=== PATIENT | female | born 1965 | race Caucasian/White ===

== ENCOUNTER → 2017-05-31 | Outpatient (CLI) | payer MEDICARE ==
[~2017-05-31] MED LIST: GADOBUTROL 10 MMOL/10 ML (GADAVIST) VIAL IV ONE
--- NOTE | 2017-05-31 17:48 | Diagnostic Imaging Report ---
PROCEDURE: MR imaging of the brain with and without contrast. TECHNIQUE: Multiplanar, multisequence MR imaging of the brain was performed with and without contrast. INDICATION: Multiple sclerosis. 8 mL of Gadovist is administered intravenously. COMPARISON: 02/24/2012. FINDINGS: There are mild supratentorial periventricular white matter T2 hyperintense signal abnormalities seen which appear slightly more prominent compared to the previous exam from 2012. There is a juxtacortical new lesion measuring 5 mm seen in the left parietal operculum area. There are also better seen T2 hyperintense lesions within the corpus callosum noted on the current sagittal FLAIR image. No prior sagittal FLAIR image to compare however is available. There is no enhancing lesion. There is no infratentorial acute lesion identified. Old lacunar infarct or old demyelinating lesion with encephalomalacia measuring 5 mm in the right cerebellar hemisphere however is seen. This appears to be present on the previous exam although less obvious compared to the present study. No brain edema or enhancing mass. The pituitary gland is normal in size. No hypothalamic or pineal region mass. The central vascular flow voids appear preserved. The internal auditory canals and inner ear structures appear unremarkable. IMPRESSION: There is minimal increase in the supratentorial T2 hyperintense lesions compared to 2012 exam, in the setting of known multiple sclerosis, which is suggestive of minimal progression compared to 2012. No enhancing lesion. Dictated by: Dictated on workstation # [id number]
== END ==
LOC: RAD 13:19
PROVIDERS: ATTEND Psychiatry & Neurology Neurology
DX: G35 Multiple sclerosis (principal)
CPT/HCPCS: 70553

== ENCOUNTER → 2018-11-01 | Outpatient (CLI) | payer MEDICARE ==
--- NOTE | 2018-11-01 12:40 | Diagnostic Imaging Report ---
INDICATION: Abnormal liver function tests. TECHNIQUE: Multiple grayscale sonographic images were obtained of the right upper quadrant of the abdomen. CORRELATION STUDY: None. FINDINGS: LIVER: There is increased echotexture within the visualized portions of the liver. There is overall limited echo penetration through the liver. Definitive focal lesion not visualized. Liver length 18.4 cm. Normal direction of flow in the main portal vein. GALLBLADDER: Multiple what appear to be nonmobile gallstones are present near the gallbladder neck. Borderline gallbladder wall thickening at 3 mm. COMMON BILE DUCT: Largely obscured by overlying bowel gas but appears to be nondilated at 4 mm. PANCREAS: Obscured by overlying bowel gas. RIGHT KIDNEY: Measures 8.2 x 5.1 x 5.0 cm. No hydronephrosis. AORTA/IVC: Not well visualized. OTHER: None. IMPRESSION: 1. Cholelithiasis with what appear to be multiple nonmobile stones within the gallbladder near the neck. Borderline gallbladder wall thickening. No significant bile duct dilatation. 2. Borderline liver size demonstrating hepatic steatosis. Dictated by: Dictated on workstation # [id number]
== END ==
LOC: RAD 07:32
PROVIDERS: ATTEND Registered Nurse
DX: K76.0 Fatty (change of) liver, not elsewhere classified (principal); K80.20 Calculus of gallbladder without cholecystitis without obstruction
CPT/HCPCS: 76705

== ENCOUNTER → 2021-07-08 | Outpatient (CLI) | payer MEDICARE ==
--- NOTE | 2021-07-08 13:15 | Diagnostic Imaging Report ---
INDICATION: Routine screening. COMPARISON: No prior mammograms are available for comparison. TECHNIQUE: 2D and 3D bilateral screening mammography was performed with CAD. FINDINGS: Both breasts are heterogeneously dense, limiting the sensitivity of mammography. There is a subtle cluster of microcalcifications in the inferior left breast on the MLO view. These appear to be fairly central on the CC view. Additional views are recommended. No other suspicious microcalcifications are seen. No dominant mass is detected. The axillae are unremarkable. IMPRESSION: Left breast calcifications. Additional views are recommended for further evaluation. ACR BI-RADS Category 0: Incomplete. (Needs additional imaging evaluation). Result letter will be mailed to the patient. Note: At least 10% of breast cancer is not imaged by mammography. Dictated by: Dictated on workstation # [id number]
== END ==
LOC: RAD 09:00
PROVIDERS: ATTEND Pediatrics
DX: Z12.31 Encounter for screening mammogram for malignant neoplasm of breast (principal); R92.1 Mammographic calcification found on diagnostic imaging of breast
CPT/HCPCS: 77063; 77067

== ENCOUNTER → 2021-07-21 | Outpatient (CLI) | payer MEDICARE ==
--- NOTE | 2021-07-21 14:34 | Diagnostic Imaging Report ---
INDICATION: Left breast calcifications. The patient presents for additional views. COMPARISON: Correlation is made with the screening study from 07/08/2021. TECHNIQUE: Unilateral left 2D and 3D diagnostic mammography was performed. This included magnification CC and ML views as well as conventional 90 degree lateral view. FINDINGS: There is a subtle cluster of calcifications in the inferior slightly inner left breast. No associated soft tissue mass is identified. There are additional benign calcifications elsewhere throughout the left breast. IMPRESSION: Indeterminate, likely benign cluster of microcalcifications in the lower slightly inner left breast at mid depth. A followup mammogram in 6 months is recommended to show continued stability. ACR BI-RADS Category 3: Probably benign findings. Result letter will be mailed to the patient. Note: At least 10% of breast cancer is not imaged by mammography. Dictated by: Dictated on workstation # [id number]
== END ==
LOC: RAD 14:15
PROVIDERS: ATTEND Pediatrics
DX: R92.0 Mammographic microcalcification found on diagnostic imaging of breast (principal)
CPT/HCPCS: 77065; G0279

== ENCOUNTER → 2021-10-21 | Outpatient (CLI) | payer MEDICARE ==
--- NOTE | 2021-10-21 09:34 | Diagnostic Imaging Report ---
PROCEDURE: MR imaging cervical spine without contrast. TECHNIQUE: Multiplanar, multisequence MR imaging of the cervical spine was performed without contrast. INDICATION: Multiple sclerosis. COMPARISON: 08/21/2011. FINDINGS: The cervical spinal cord itself appears intrinsically unremarkable. No visualized plaque, volume loss, or other cord pathology is found. There is straightening of the cervical curvature now showing mild reversal of lordosis at the C4-C5 level. No acute bony pathology. There are mixed fatty and edematous Modic type I-type II changes across the articular endplates at C5-C6 and as new findings. No paravertebral mass, hemorrhage, or fluid collection. The craniocervical relationship and the C1-C2 and C2-C3 levels and discs are normal. There is no stenosis. C3-C4: There is mild disc desiccation as well as a new focal midline small disc protrusion indenting the midline ventral thecal sac with mild canal stenosis. The foramina are patent. C4-C5: Progressive spondylosis with osteophyte/disc material, anterior greater than posterior, has occurred. There is now a moderate canal stenosis with moderate to severe biforaminal stenoses. C5-C6: Posterior osteophyte/disc material indents the ventral thecal sac and has progressed, now with moderate to severe canal stenosis. There is severe left and moderate to severe right neuroforaminal narrowing, increased. C6-C7: Osteophyte/disc material, anterior greater than posterior, has progressed and now results in moderate spinal canal stenosis with moderate left and mild right foraminal narrowing. The C7-T1 level and disc are stable and normal. There is no stenosis. IMPRESSION: 1. The spinal cord itself appears unremarkable and stable. 2. Progressive degenerative changes throughout the mid to lower cervical spine result in substantial degrees of increased multilevel canal and foraminal stenoses detailed level by level above. Dictated by: Dictated on workstation # [id number]
--- NOTE | 2021-10-21 09:45 | Diagnostic Imaging Report ---
PROCEDURE: MR imaging of the brain without contrast. TECHNIQUE: Multiplanar, multisequence MR imaging of the brain was performed without contrast. INDICATION: Multiple sclerosis. COMPARISON: 05/31/2017. FINDINGS: A small area of curvilinear gliosis associated with the left frontal lobe anterosuperiorly may be on a post ischemic basis. This does not have the typical morphology of a multiple sclerosis plaque. With regards to the other scattered areas of subcortical and periventricular white matter disease T2 hyperintense and most conspicuous on the FLAIR weighted pulse sequences, these show no convincing interval change and exert no mass effect. None of these lesions show diffusion restriction. There are no findings to suggest active demyelinization at this nonenhanced study. The orbital contents are unremarkable. The optic nerves and their sheaths are unremarkable. There are no findings of an infarct. There is no evidence for acute hemorrhage. No focal or generalized cerebral edema. No evidence for an elevation of the intracerebral pressures. IMPRESSION: 1. Subcortical and periventricular white matter disease supratentorially shows no significant change. There is likely a small area of curvilinear cortical gliosis in the left frontal lobe. 2. No hemorrhage, infarct, edema, or acute appearing abnormalities. Dictated by: Dictated on workstation # [id number]
== END ==
LOC: RAD 07:30
PROVIDERS: ATTEND Psychiatry & Neurology Neurology
DX: M47.812 Spondylosis without myelopathy or radiculopathy, cervical region (principal); M50.20 Other cervical disc displacement, unspecified cervical region; M48.02 Spinal stenosis, cervical region; M25.78 Osteophyte, vertebrae; G35 Multiple sclerosis
CPT/HCPCS: 70551; 72141

== ENCOUNTER 2022-01-28 05:32 | Outpatient (CLI) | payer MEDICARE ==
[~2022-01-28] VITALS: Ht 170.2 cm; Wt 79.4 kg
[2022-01-28] MEDS ORDERED: AMIT50TA3 PO (11:08)
[2022-01-28] MEDS ORDERED: DULO60CA59 PO (11:08)
[2022-01-28] MEDS ORDERED: GABA-490 PO (11:08)
[2022-01-28] MEDS ORDERED: CARB200T6 PO (11:08)
[2022-01-28] MEDS ORDERED: DEXT10CA18 PO (11:08)
[2022-01-28] MEDS ORDERED: ATOR80TA76 PO (11:08)
[2022-01-28] MEDS ORDERED: RT-ALBUINH IH (11:08)
[2022-01-28] MEDS ORDERED: ERGO80009 PO (11:08)
[2022-01-28] MEDS ORDERED: GLIM1TAB4 PO (11:08)
[2022-01-28] MEDS ORDERED: GLAT20KI3 SQ (11:08)
[2022-01-28] MEDS ORDERED: TIOT18CA2 IH (11:08)
[2022-01-28] MEDS ORDERED: BUDE10.2 IH (11:08)
== END 2022-01-28 11:10 | disposition home or self-care (01) ==
LOC: PREOP 05:32
PROVIDERS: ATTEND Surgery
DX: Z01.818 Encounter for other preprocedural examination (principal)

== ENCOUNTER → 2022-01-30 | Outpatient (CLI) | payer MEDICARE ==
[~2022-01-30] MED LIST changes: +AMIT50TA3 PO; +ATOR80TA76 PO; +BUDE10.2 IH; +CARB200T6 PO; +DEXT10CA18 PO; +DULO60CA59 PO; +ERGO80009 PO; +GABA-490 PO; -GADOBUTROL 10 MMOL/10 ML (GADAVIST) VIAL IV ONE; +GLAT20KI3 SQ; +GLIM1TAB4 PO; +RT-ALBUINH IH; +TIOT18CA2 IH
--- NOTE | 2022-01-30 12:43 | Diagnostic Imaging Report ---
INDICATION: Six-month follow-up left breast calcifications. CORRELATION is made prior mammograms from 07/21/2021 and 07/08/2021. Unilateral left 2-D and 3-D diagnostic mammography was performed with CAD. Left breast remains heterogeneously dense, limiting the sensitivity of mammography. The small cluster of microcalcifications in the central left breast mid depth appear stable. There are additional scattered benign calcifications. No mass is detected. Left axilla is unremarkable. IMPRESSION: BI-RADS Category 3 Stable left breast calcifications. Six-month additional follow-up is recommended to show continued stability. ACR BI-RADS Category 3: Probably benign findings. Result letter will be mailed to the patient. Note: At least 10% of breast cancer is not imaged by mammography. Dictated by: Dictated on workstation # [id number]
== END ==
LOC: RAD 12:45
PROVIDERS: ATTEND Pediatrics
DX: R92.1 Mammographic calcification found on diagnostic imaging of breast (principal)
CPT/HCPCS: 77065; G0279

== ENCOUNTER 2022-02-09 06:55 | Day surgery (SDC) | payer MEDICARE ==
[~2022-02-09] VITALS: Ht 170 cm; Wt 79.4 kg
[2022-02-09] MEDS ORDERED: PROPOFOL INJECTION 50 ML IV ONE (07:02)
[2022-02-09] MEDS ORDERED: LACTATED RINGERS 1,000 ML IV STA (07:03)
[2022-02-09 07:19] VITALS: BP 128/90
[2022-02-09 08:45] VITALS: BP 189/93
--- NOTE | 2022-02-09 08:49 | Progress Note-Post Operative ---
Post-Operative Progess Note Surgeon (s)/Field Sales Specialist (s) Surgeon MANDI BROUSSARD DO Field Sales Specialist: none Pre-Operative Diagnosis +Cologuard Post-Operative Diagnosis Polyp int hemorrhoid Procedure & Operative Findings Date of Procedure 02/09/22 Procedure Performed/Findings Colonoscopy with snare polypectomy PROCEDURE NOTE: After informed consent was obtained, the patient was brought to the endoscopy suite, placed in bed in left lateral decubitus position. She was administered IV sedation by the STEEL ROD BUSTER who then monitored her vitals the entire time, heart rate, blood pressure and pulse ox and the scope was inserted, pushed all the way to about 120 cm and pushed into the cecum, took a picture of appendiceal orifice and then slowly withdrew the scope insufflating the circumferential renteria looking the cecum, up the ascending colon to the hepatic flexure, then down the transverse colon, splenic flexure, into the descending colon down. Found a small polyp in the descending colon, took a picture and then removed by snare. Continued down into the sigmoid and then into the rectal vault. Retroflexed the scope and took a picture of the internal hemorrhoids. The patient tolerated the procedure. She was recovered in endoscopy suite. Recommended for repeat colonoscopy in 5 years. Anesthesia Type IV sedation by [employer] BUSTER Estimated Blood Loss Estimated blood loss (mL): scant Specimens/Packing Specimens Removed desc colon polyp MANDI BROUSSARD DO Feb 09, 2022 08:49
[2022-02-09 08:50] VITALS: BP 170/88
--- NOTE | 2022-02-09 08:50 | Endoscopy Discharge Instruct ---
Endo Procedure/Findings Findings 1.: Polyp 2.: Internal Hemorrhoids Discharge Instructions - Activity: You might feel a little sleepy until tomorrow. This is due to the medicine you received to relax you. Until tomorrow, you should: NOT drive a car, operate machinery or power tools. NOT drink any alcoholic beverages. NOT make any important decisions or sign importortant papers. Do not return to work until tomorrow, unless otherwise instructed. Resume previous activities tomorrow. Diet: Start by taking liquids. If you tolerate liquids, advance to solid food. 1.: Colonscopy in 5 years Notify Physician - If you experience excessive bleeding, unusual abdominal pain, fever, or chest pain, contact your doctor immediately. MANDI BROUSSARD DO Feb 09, 2022 08:50
[2022-02-09 09:06] VITALS: BP 167/92
--- NOTE | 2022-02-09 10:01 | Anesthesia-General Post-Op ---
MAC Patient Condition Mental Status/LOC: Same as Preop Cardiovascular: Satisfactory Nausea/Vomiting: Absent Respiratory: Satisfactory Pain: Controlled Complications: Absent Post Op Complications Complications None Follow Up Care/Instructions Patient Instructions None needed. Anesthesiology Discharge Order Discharge Order Patient is doing well, no complaints, stable vital signs, no apparent adverse anesthesia problems. No complications reported per nursing. SAM DAMON CRNA Feb 09, 2022 10:01
== END 2022-02-09 09:13 | disposition home or self-care (01) ==
LOC: ENDO 06:55
PROVIDERS: ATTEND Surgery
DX: K63.5 Polyp of colon (principal); K64.8 Other hemorrhoids; F17.210 Nicotine dependence, cigarettes, uncomplicated; E11.9 Type 2 diabetes mellitus without complications; Z79.84 Long term (current) use of oral hypoglycemic drugs
CPT/HCPCS: 82947; 88305

== ENCOUNTER 2022-04-06 15:05 | Emergency (ER) | payer MEDICARE ==
[~2022-04-06] VITALS: Ht 170.2 cm; Wt 79.4 kg
[2022-04-06 15:30] LABS: BASOPHILS # (AUTO) 0.1 10^3/uL (0.0-0.1); BASOPHILS % (AUTO) 1 % (0-10); EOSINOPHILS # (AUTO) 0.3 10^3/uL (0.0-0.3); EOSINOPHILS % (AUTO) 3 % (0-10); HEMATOCRIT 45 % (35-52); HEMOGLOBIN 15.4 g/dL (11.5-16.0); LYMPHOCYTES # (AUTO) 2.7 10^3/uL (1.0-4.0); LYMPHOCYTES % (AUTO) 26 % (12-44); MEAN CORPUSCULAR HEMOGLOBIN 30 pg (25-34); MEAN CORPUSCULAR HGB CONC 34 g/dL (32-36); MEAN CORPUSCULAR VOLUME 89 fL (80-99); MEAN PLATELET VOLUME 9.8 fL (9.0-12.2); MONOCYTES # (AUTO) 0.7 10^3/uL (0.0-1.0); MONOCYTES % (AUTO) 6 % (0-12); NEUTROPHILS # (AUTO) 6.7 10^3/uL (1.8-7.8); NEUTROPHILS % (AUTO) 64 % (42-75); PLATELET COUNT 248 10^3/uL (130-400); WHITE BLOOD COUNT 10.4 10^3/uL (4.3-11.0)
[2022-04-06 15:35] LABS: ALBUMIN 4.5 GM/DL (3.2-4.5)
--- NOTE | 2022-04-06 15:35 | Diagnostic Imaging Report ---
INDICATION: Stroke. TIME OF EXAM: 03:33 p.m. COMPARISON: No prior studies are available for comparison. FINDINGS: The heart size is normal. The pulmonary vascularity is unremarkable. The lungs are clear. No infiltrate, effusion or pneumothorax is detected. IMPRESSION: No acute cardiopulmonary process is detected. Dictated by: Dictated on workstation # [id number]
[2022-04-06 15:36] LABS: CHLORIDE 106 MMOL/L (98-107); POTASSIUM 3.5 MMOL/L (3.6-5.0); SODIUM 142 MMOL/L (135-145)
[2022-04-06 15:37] LABS: CALCIUM 9.7 MG/DL (8.5-10.1)
[2022-04-06 15:38] LABS: GLUCOSE 199 MG/DL (70-105)
--- NOTE | 2022-04-06 15:38 | Diagnostic Imaging Report ---
PROCEDURE: CT head wo r/o stroke. TECHNIQUE: Multiple contiguous axial images were obtained through the brain without the use of intravenous contrast. Auto Exposure Controls were utilized during the CT exam to meet ALARA standards for radiation dose reduction. INDICATION: Difficulty speaking and weakness. The ventricles and sulci are within normal limits. No sulcal effacement or midline shift is identified. No acute intra-axial or extra-axial hemorrhage is detected. Cisterns are patent. The visualized paranasal sinuses are clear. IMPRESSION: No acute intracranial process is detected. Dictated by: Dictated on workstation # [id number]
[2022-04-06 15:39] LABS: CARBON DIOXIDE 19 MMOL/L (21-32)
[2022-04-06 15:40] LABS: BILIRUBIN,TOTAL 0.4 MG/DL (0.1-1.0)
[2022-04-06 15:41] LABS: ALKALINE PHOSPHATASE 200 U/L (40-136)
[2022-04-06 15:42] LABS: CREATININE SERUM 1.29 MG/DL (0.60-1.30); GFR ESTIMATED 49
[2022-04-06 15:43] LABS: BUN/CREATININE RATIO 11
[2022-04-06 15:44] LABS: ALANINE AMINOTRANSFERASE 24 U/L (0-55); FIBRIN DEGRADATION PRODUCTS 0.86 UG/ML (0.00-0.49); PROTHROMBIN TIME PATIENT 13.7 SEC (12.2-14.7)
--- NOTE | 2022-04-06 15:52 | ED Neurological Problem ---
General Chief Complaint: Neuro-Stroke Like Symptoms Stated Complaint: STROKE SYMPTOMS Nursing Triage Note: PT BROUGHT IN BY [facility] FROM HOME WITH COMPLAINT OF DIFFICULTY SPEAKING, WEAKNESS. PT WAS IN [facility] WHEN SHE BECAME OVERHEATED AND HAD DIFFICULTY SPEAKING. STATES WENT TO HER KNEES IN [facility] AFTER FEELING WEAK. WENT TO THE TRUCK WHERE HER WAS AND STILL HAD DIFFICULTY SPEAKING. TOOK PT HOME, AND WHEN SHE GOT OUT OF THE TRUCK FELL ON THE GROUND. INITIAL BP FOR EMS WAS IN THE 190s. PER EMS, PT WAS UNABLE TO FORM A SENTENCE. STATES PT HAS IMPROVED THAN WHEN THEY FIRST ARRIVED ON SCENE. A&0X4 ON ARRIVAL. Source: patient Exam Limitations: no limitations (AASHISH BURKETT) History of Present Illness Date Seen by Provider: Apr 06, 2022 Time Seen by Provider: 15:21 Initial Comments Patient to the ER by EMS from [place] at her house where she fell in front of her house in the driveway for the second time. The first fall was just prior to this at [facility]. While she was at [facility] with her she started having difficulty expressing herself and getting her words out. She has a history of MS and she says sometimes when she gets very hot she gets flustered and feels like she cannot pass out. She says she felt like she was going to pass out today. She is not having any nausea, chest pain, fevers, chills, diarrhea. Her drove her home and that is when she fell the second time so he called 911. She has no history of stroke or heart disease. She does smoke a pack of cigarettes per day has hyperlipidemia but no hypertension. She has diabetes on glimepiride and denies any familial early onset coronary disease. She is not having any facial droop, slurred speech or lateralizing symptoms. She has had syncopal episodes related to her MS in the past. She has chronic weakness or difficulty getting her left leg to do what she wants related to her MS. symptoms started at 1400. She states that now she feels back to her baseline. (AASHISH BURKETT) Allergies and Home Medications Allergies Coded Allergies: NKANo Known Allergies (Unverified Allergy, Mild, 01/01/09) Patient Home Medication List Home Medication List Reviewed: Yes (AASHISH BURKETT) Albuterol Sulfate (Proair Hfa) 1 Puff Puff, 2 PUFF IH Q4H, (Reported) Entered as Reported by: BROOKS EDUARDO on 01/28/221107 Amitriptyline HCl (Amitriptyline HCl) 50 Mg Tablet, 50 MG PO HS, (Reported) Entered as Reported by: BROOKS EDUARDO on 01/28/221107 Atorvastatin Calcium (Atorvastatin Calcium) 80 Mg Tablet, 80 MG PO DAILY, (Reported) Entered as Reported by: BROOKS EDUARDO on 01/28/221107 Budesonide/Formoterol Fumarate (Symbicort 160-4.5 Mcg Inhaler) 160 Mcg-4.5 Mcg/Actuation Hfa.aer.ad, 2 PUFF IH BID, (Reported) Entered as Reported by: BROOKS EDUARDO on 01/28/221107 Carbamazepine (Carbamazepine) 200 Mg Tablet, 200 MG PO TID, (Reported) Entered as Reported by: BROOKS EDUARDO on 01/28/221107 Dextroamphetamine/Amphetamine (Dextroamp-Amphet ER 10 mg Cap) 10 Mg Cap.er.24h, 10 MG PO BID, (Reported) Entered as Reported by: BROOKS EDUARDO on 01/28/221107 Duloxetine HCl (Duloxetine HCl) 60 Mg Capsule.dr, 60 MG PO DAILY, (Reported) Entered as Reported by: BROOKS EDUARDO on 01/28/221107 Ergocalciferol (Vitamin D2) (Ergocalciferol) 200 Mcg/Ml (8000 Unit/Ml) Drops, 200 MCG PO WEEK, (Reported) Entered as Reported by: BROOKS EDUARDO on 01/28/221107 Gabapentin (Gabapentin) 400 Mg Capsule, 300 MG PO TID, (Reported) Entered as Reported by: BROOKS EDUARDO on 01/28/221107 Glatiramer Acetate (Copaxone) 20 Mg/Ml Syringe, 20 MG SQ UD, (Reported) Entered as Reported by: BROOKS EDUARDO on 01/28/221107 Glimepiride (Glimepiride) 1 Mg Tablet, 1 MG PO DAILY, (Reported) Entered as Reported by: BROOKS EDUARDO on 01/28/221107 Tiotropium [place] (Spiriva) 18 Mcg Aerp, 1 INH IH DAILY, (Reported) Entered as Reported by: BROOKS EDUARDO on 01/28/22 1108 Review of Systems Review of Systems Constitutional: see HPI Eyes: See HPI Ears, Nose, Mouth, Throat: see HPI Respiratory: no symptoms reported Cardiovascular: no symptoms reported Gastrointestinal: no symptoms reported Genitourinary: no symptoms reported Musculoskeletal: no symptoms reported Skin: no symptoms reported (AASHISH BURKETT) All Other Systems Reviewed Negative Unless Noted: Yes (AASHISH BURKETT) Past Dcbwugl-Dpldde-Ethycl Hx Patient Social History Tobacco Use?: Yes Tobacco type used: Cigarettes Smoking Status: Current Everyday Smoker Use of E-Cig and/or Vaping dev: No Substance use?: No Alcohol Use?: No Pt feels they are or have been: No (AASHISH BURKETT) Immunizations Up To Date First/Initial COVID19 Vaccinat: 2020 Second COVID19 Vaccination Stewart: 2020 Third COVID19 Vaccination Date: 2020 (AASHISH BURKETT) Seasonal Allergies Seasonal Allergies: No (AASHISH BURKETT) Past Medical History Surgeries: Yes Tubal Ligation Respiratory: No Cardiac: Yes High Cholesterol Neurological: No Genitourinary: No Gastrointestinal: No Musculoskeletal: No Endocrine: No HEENT: No Cancer: No Psychosocial: No Integumentary: No Blood Disorders: No (AASHISH BURKETT) Physical Exam Vital Signs Vital Signs - First Documented 04/06/22 15:10 Temp 36.2 Pulse 108 Resp 23 B/P (MAP) 136/110 (119) Pulse Ox 95 O2 Delivery Room Air (MONICO,KIRTI K DO) Vital Signs Capillary Refill : Less Than 3 Seconds (AASHISH BURKETT) Height, Weight, BMI Height: '" Weight: lbs. oz. 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, no motor/sensory deficits, alert, normal mood/affect, oriented x 3 (AASHISH BURKETT) Stroke Onset of Symptoms Date of Onset of Symptoms: Apr 06, 2022 Time of Symptom Onset: 14:00 (AASHISH BURKETT) NIH Stroke Scale Assessment Select: Initial Level of Consciousness: 0=Alert (0), Level of Consciousness- Questions: 0=Answers both month/age (0), LOC Commands: 0=Performs both tasks (0), Visual Darling: 0=No visual loss (0), Facial Movement (Facial Paresis): 0=Normal symmetrical mnt (0), Motor Function-Arms Right: 0=No drift (0), Motor Function-Arms Left: 0=No drift (0), Motor Function-Legs Right: 0=No drift (0), Motor Function-Legs Left: 0=No drift (0), Limb Ataxia: 0=Absent (0), Sensory: 0=Normal:no loss (0), Best Language: 1=Mild to moderat aphasia (1), Dysarthria: 0=Normal (0), Extinction & Inattention: 0=No abnormality (0), Total: 1 Stroke Thrombolytic Exclusion Age 18 or Over: Yes Acute intenal hemorrhage: No History of CVA: No Uncontrolled Coagulation Defec: No Intracranial Hemorrhage: No Severe Hypertension: No GI or Bleed: No Subarachnoid Hemorrhage: No Intracranial Neoplasm/Aneurysm: No Oral Anticoagulants: No Surgery or Trauma: No Puncture of Non-Compressible V: No Recent CPR: No Diabetic Hemorrhagic Retinopat: No Organ Biopsy: No Recent Obstetric Delivery: No Glucose: No (200) Significant Hepatic Dysfunctio: No NIH Stoke Scale >22: No Bacterial Endocarditis: No Pericarditis: No Improving Symptoms: Yes Platelets: No TPA Contraindication: No (AASHISH BURKETT) IV - TPa Received IV - TPa Procedure Performed?: No (Not sufficient benefits) (AASHISH BURKETT) Progress/Results/Core Measures Results/Orders Lab Results Laboratory Tests Test 04/06/22 15:11 04/06/22 15:15 04/06/22 16:28 04/06/22 18:00 Range/Units Glucometer 218 H 70-110 MG/DL White Blood Count 10.4 4.3-11.0 10^3/uL Red Blood Count 5.08 3.80-5.11 10^6/uL Hemoglobin 15.4 11.5-16.0 g/dL Hematocrit 45 35-52 % Mean Corpuscular Volume 89 80-99 fL Mean Corpuscular Hemoglobin 30 25-34 pg Mean Corpuscular Hemoglobin Concent 34 32-36 g/dL Red Cell Distribution Width 12.5 10.0-14.5 % Platelet Count 248 130-400 10^3/uL Mean Platelet Volume 9.8 9.0-12.2 fL Immature Granulocyte % (Auto) 0 % Neutrophils (%) (Auto) 64 42-75 % Lymphocytes (%) (Auto) 26 12-44 % Monocytes (%) (Auto) 6 0-12 % Eosinophils (%) (Auto) 3 0-10 % Basophils (%) (Auto) 1 0-10 % Neutrophils # (Auto) 6.7 1.8-7.8 10^3/uL Lymphocytes # (Auto) 2.7 1.0-4.0 10^3/uL Monocytes # (Auto) 0.7 0.0-1.0 10^3/uL Eosinophils # (Auto) 0.3 0.0-0.3 10^3/uL Basophils # (Auto) 0.1 0.0-0.1 10^3/uL Immature Granulocyte # (Auto) 0.0 0.0-0.1 10^3/uL Prothrombin Time 13.7 12.2-14.7 SEC INR Comment 1.0 0.8-1.4 Activated Partial Thromboplast Time 20 L 24-35 SEC D-Dimer 0.86 H 0.00-0.49 UG/ML Sodium Level 142 135-145 MMOL/L Potassium Level 3.5 L 3.6-5.0 MMOL/L Chloride Level 106 98-107 MMOL/L Carbon Dioxide Level 19 L 21-32 MMOL/L Anion Gap 17 H 5-14 MMOL/L Blood Urea Nitrogen 14 7-18 MG/DL Creatinine 1.29 0.60-1.30 MG/DL Estimat Glomerular Filtration Rate 49 BUN/Creatinine Ratio 11 Glucose Level 199 H 70-105 MG/DL Calcium Level 9.7 8.5-10.1 MG/DL Corrected Calcium 9.3 8.5-10.1 MG/DL Total Bilirubin 0.4 0.1-1.0 MG/DL Aspartate Amino Transf (AST/SGOT) 18 5-34 U/L Alanine Aminotransferase (ALT/SGPT) 24 0-55 U/L Alkaline Phosphatase 200 H 40-136 U/L Troponin I < 0.028 < 0.028 <0.028 NG/ML Total Protein 8.0 6.4-8.2 GM/DL Albumin 4.5 3.2-4.5 GM/DL Urine Color YELLOW Urine Clarity SL CLOUDY Urine pH 5.5 5-9 Urine Specific [place] >=1.030 1.016-1.022 Urine Protein 2+ H NEGATIVE Urine Glucose (UA) 3+ H NEGATIVE Urine Ketones TRACE H NEGATIVE Urine Nitrite NEGATIVE NEGATIVE Urine Bilirubin 2+ H NEGATIVE Urine Urobilinogen 1.0 < = 1.0 MG/DL Urine Leukocyte Esterase NEGATIVE NEGATIVE Urine RBC (Auto) NEGATIVE NEGATIVE Urine RBC NONE /HPF Urine WBC 0-2 /HPF Urine Squamous Epithelial Cells 5-10 /HPF Urine Crystals NONE /LPF Urine Bacteria TRACE /HPF Urine Casts PRESENT /LPF Urine Hyaline Casts 5-10 H /LPF Urine Mucus NEGATIVE /LPF Urine Culture Indicated NO (MONICO,KIRTI K DO) Medications Given in ED Current Medications Medications Dose Ordered Sig/Oswaldo Route Start Time Stop Time Status Last Admin Dose Admin Aspirin 324 mg ONCE ONCE PO 04/06/22 16:00 04/06/22 16:01 DC 04/06/22 15:58 324 MG (MONICO,KIRTI K DO) Vital Signs/I&O 04/06/22 04/06/22 15:10 16:48 Temp 36.2 Pulse 108 93 99 115 Resp 23 B/P (MAP) 136/110 (119) 160/82 (108) 164/84 (110) 144/98 (113) Pulse Ox 95 O2 Delivery Room Air (MONICO,KIRTI K DO) Blood Pressure Mean: 119 FSBG Bedside Testing Finger Stick Blood Glucose: 218 (AASHISH BURKETT) Progress Progress Note #1: Time: 16:01 Progress Note Syncope work-up. EKG revealed lateral inferior ST depression and nondiagnostic half block ST elevation in anterior leads V1 and V2. ST elevation 1 block and aVR. Patient's not having any chest pain. Her initial troponin is negative. This will need to be trended and organ to give her a liter of fluids and do a set of orthostatic vital signs. We discussed the case with Dr. Smiley, neurology at [facility]. 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 However she says we should hold onto her overnight do neurochecks and get an MRI of the head in the morning. If the MRI of the brain reveals evidence of a CVA then she would recommend we do a CT angiogram of the head and neck. Progress Note #2: Time: 16:28 Progress Note Patient was offered opportunity to stay for neurochecks, MRI in the morning and conjunction with neurologist recommendation. Patient states she is not willing to stay in the hospital because she has to be a caregiver for her . Orthostats are positive going from 164 systolic down to 144 systolic and heart rate going from 99 up to 115 on standing. Giving her a liter of fluids and will do a delta troponin 4 hours after her symptoms started, 1800. If it is negative then will encourage her to follow-up with PCP to set up MRI outpatient. We explained to her that this would not be incongruence with the medical advice of the neurologist and she accepts the risks and still wants to go home. (AASHISH BURKETT) Progress Note : Progress Note ASSUMED CARE FROM DR. BURKETT, REPEAT TROPONIN IS NEGATIVE. PT CONTINUES TO DECLINE ADMIT AND WANTS TO GO HOME AND FOLLOW UP WITH HER NEUROLOGIST. PT IS FEELING BETTER NOW. (KIRTI MARC DO) Initial ECG Impression Date: Apr 06, 2022 Initial ECG Impression Time: 15:36 Initial ECG Rate: 102 Initial ECG Rhythm: S.Tach Initial ECG Intervals: Normal Initial ECG Impression: Normal Initial ECG Comparisson: Changed Comment Nonspecific ST depression in the inferior and lateral leads. There is reciproca l elevation [address] segment in aVR and half a block in V1, V2. Sinus tachycardia (AASHISH BURKETT) Diagnostic Imaging Diagonstic Imaging: Xray Plain Films/CT/US/NM/MRI: chest Comments [facility] [place] NAME: VIJAYA VILLALOBOS [facility] REC#: [id number] PT STATUS: REG ER : 1965 PHYSICIAN: AASHISH BURKETT MD ADMIT DATE: 04/06/22/ER Signed Date of Exam:04/06/22 CHEST 1 VIEW, AP/PA ONLY INDICATION: Stroke. TIME OF EXAM: 03:33 p.m. COMPARISON: No prior studies are available for comparison. FINDINGS: The heart size is normal. The pulmonary vascularity is unremarkable. The lungs are clear. No infiltrate, effusion or pneumothorax is detected. IMPRESSION: No acute cardiopulmonary process is detected. Dictated by: Dictated on workstation # [id number] Dict: 04/06/22 1533 Trans: 04/06/22 1544 [facility] [id number] Interpreted by: JAZMÍN CHOI MD Electronically signed by: JAZMÍN CHOI MD 04/06/22 154 Reviewed: Reviewed by Me Diagonstic Imaging: CT Plain Films/CT/US/NM/MRI: head Comments [facility] [place] NAME: VIJAYA VILLALOBOS [facility] REC#: [id number] PT STATUS: REG ER : 1965 PHYSICIAN: AASHISH BURKETT MD ADMIT DATE: 04/06/22/ER Signed Date of Exam:04/06/22 CT HEAD WO-R/O STROKE PROCEDURE: CT head wo r/o stroke. TECHNIQUE: Multiple contiguous axial images were obtained through the brain without the use of intravenous contrast. Auto Exposure Controls were utilized during the CT exam to meet ALARA standards for radiation dose reduction. INDICATION: Difficulty speaking and weakness. The ventricles and sulci are within normal limits. No sulcal effacement or midline shift is identified. No acute intra-axial or extra-axial hemorrhage is detected. Cisterns are patent. The visualized paranasal sinuses are clear. IMPRESSION: No acute intracranial process is detected. Dictated by: Dictated on workstation # [id number] Dict: 04/06/22 1534 Trans: 04/06/22 1544 [id number] Interpreted by: JAZMÍN CHOI MD Electronically signed by: JAZMÍN CHOI MD 04/06/22 1544 Reviewed: Reviewed by Me (AASHISH BURKETT) Departure Impression Primary Impression: Orthostatic syncope Additional Impression: MS (multiple sclerosis) Disposition: 01 HOME, SELF-CARE Condition: Improved Departure-Patient Inst. Decision time for Depature: 19:08 (KIRTI MARC DO) Referrals: BROOKS MACKENZIE MD (PCP/Family) Primary Care Physician Patient Instructions: Orthostatic Hypotension (DC), Fainting, Adult ED, Multiple Sclerosis in Adults Add. Discharge Instructions: INCREASE YOUR FLUIDS--WATER, BROTH, JELLO, GATORADE CONTINUE YOUR REGULAR MEDICATIONS PRESCRIBED FOLLOW UP WITH YOUR NEUROLOGIST TOMORROW RETURN TO ER IF SYMPTOMS WORSEN All discharge instructions reviewed with patient and/or family. Voiced understanding. AASHISH BURKETT Apr 06, 2022 15:51 KIRTI MARC DO Apr 06, 2022 19:09
[2022-04-06] MEDS ORDERED: ASPIRIN 81 MG CHEW (CHILDREN'S ASA) PO ONE (16:00)
[2022-04-06] MEDS ORDERED: NS IV 1000 ML 1,000 ML IV SCH ×2 (16:00→16:30)
[2022-04-06 16:38] LABS: CLARITY,URINE SL CLOUDY; COLOR,URINE YELLOW; GLUCOSE, URINE (UA) 3+ (NEGATIVE); KETONES,URINE TRACE (NEGATIVE); LEUKOCYTE ESTERASE ,URINE NEGATIVE (NEGATIVE); NITRITE,URINE NEGATIVE (NEGATIVE); PH,URINE 5.5 (5-9); PROTEIN,URINE 2+ (NEGATIVE)
[2022-04-06 16:48] VITALS: BP_SYST 144; BP_SYST 160; BP_SYST 164; BP_DIAS 82; BP_DIAS 84; BP_DIAS 98
[2022-04-06 16:53] LABS: BILIRUBIN,URINE 2+ (NEGATIVE)
[2022-04-06 16:54] LABS: BACTERIA,URINE TRACE /HPF; WBC,URINE 0-2 /HPF
[2022-04-06 19:09] VITALS: BP 142/81
== END 2022-04-06 19:17 | disposition home or self-care (01) ==
LOC: EDUNIT# 15:05 → ER 15:06
DX: G35 Multiple sclerosis (principal); R55 Syncope and collapse; F17.210 Nicotine dependence, cigarettes, uncomplicated
CPT/HCPCS: 36415; 70450; 71045; 80053; 81000; 82947; 84484; 85025; 85379; 85610; 85730; 93005; 93041

== ENCOUNTER → 2022-12-10 | Outpatient (CLI) | payer MEDICARE, MEDICAID ==
[~2022-12-10] MED LIST changes: +ALBU8.5H6 IH; -RT-ALBUINH IH
--- NOTE | 2022-12-10 13:07 | Diagnostic Imaging Report ---
INDICATION: Six-month followup left breast calcifications. COMPARISON: 07/08/2021. TECHNIQUE: 2D and 3D bilateral diagnostic mammography was performed with CAD. FINDINGS: Both breasts are heterogeneously dense, limiting the sensitivity of mammography. Bilateral calcifications are stable. A cluster in the slightly medial left breast at mid depth is stable. This now shows 18 months of stability. The axillae are unremarkable. IMPRESSION: Stable left breast calcifications now showing 18 months of stability. One final 6 month followup would be recommended to show 2 years of stability. If these remain stable at that time, the patient may return to routine annual screening mammography. ACR BI-RADS Category 3: Probably benign findings. Result letter will be mailed to the patient. Note: At least 10% of breast cancer is not imaged by mammography. Dictated by: Dictated on workstation # [id number]
== END ==
LOC: RAD 12:01
PROVIDERS: ATTEND Pediatrics
DX: R92.1 Mammographic calcification found on diagnostic imaging of breast (principal)
CPT/HCPCS: 77066; G0279; 77062

== ENCOUNTER → 2023-03-15 | Outpatient (CLI) | payer MEDICARE, MEDICAID ==
[~2023-03-15] MED LIST changes: +GADOTERATE 0.5 MMOL/ML (CLARISCAN) 20 ML VIAL IV ONE
--- NOTE | 2023-03-15 15:20 | Diagnostic Imaging Report ---
PROCEDURE: MR imaging of the brain with and without contrast. TECHNIQUE: Multiplanar, multisequence MR imaging of the brain was performed with and without contrast. INDICATION: Fall, concern for multiple sclerosis. COMPARISON: Brain MRI on 10/21/2021. FINDINGS: A subacute infarct within the right frontoparietal region with associated enhancement. No acute intracranial hemorrhage. Encephalomalacia within the left frontal lobe is redemonstrated. New area of encephalomalacia within the left parietal lobe. Scattered mild to/flair hyperintense signal within the periventricular and subcortical white matter. No infratentorial lesions are identified. The flow voids are maintained. The paranasal sinuses and mastoids are clear. The globes and orbits are intact. No intracranial mass or fluid collection. No midline shift or mass effect. 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 Recommend follow-up brain MRI in 3 months to document resolution of the enhancement. Interval small area of encephalomalacia within the left parietal lobe. Redemonstration of encephalomalacia within the left frontal lobe. Mild chronic small vessel ischemic disease. Mild global volume loss. Dictated by: Dictated on workstation # [id number]
== END ==
LOC: RAD 12:40
PROVIDERS: ATTEND Pediatrics
DX: G93.89 Other specified disorders of brain (principal); G35 Multiple sclerosis
CPT/HCPCS: 70553

== ENCOUNTER → 2023-05-19 | Outpatient (CLI) | payer MEDICARE, MEDICAID ==
[~2023-05-19] MED LIST changes: +ERGO800010 PO; -ERGO80009 PO; -GABA-490 PO; +GABA-491 PO; -GADOTERATE 0.5 MMOL/ML (CLARISCAN) 20 ML VIAL IV ONE
--- NOTE | 2023-05-19 09:41 | Diagnostic Imaging Report ---
INDICATION: Left breast calcifications. Patient presents for 6 month followup. COMPARISON: Correlation is made with prior mammograms dating back to 07/08/2021. TECHNIQUE: Unilateral left 2D and 3D diagnostic mammography was performed with CAD. FINDINGS: The left breast remains heterogeneously dense, limiting the sensitivity of mammography. The subtle cluster of microcalcifications in the inner left breast remains stable. There are benign calcifications in the left breast as well. No mass is detected. The left axilla is unremarkable. IMPRESSION: No mammographic features suspicious for malignancy are identified. The left breast calcifications now show 2 years of stability. The patient may return to routine annual screening mammography. ACR BI-RADS Category 2: Benign findings. Result letter will be mailed to the patient. Note: At least 10% of breast cancer is not imaged by mammography. Dictated by: Dictated on workstation # [id number]
== END ==
LOC: RAD 08:37
PROVIDERS: ATTEND Pediatrics
DX: R92.0 Mammographic microcalcification found on diagnostic imaging of breast (principal)
CPT/HCPCS: 77065; G0279